=== PATIENT | female | born 1980 | race Two or more races ===

== ENCOUNTER 2016-11-01 07:52 | Emergency (ER) | payer OTHER ==
[~2016-11-01] VITALS: Ht 165.1 cm; Wt 88.5 kg
[2016-11-01] MEDS ORDERED: METFORMIN HCL500 M1 ORAL (08:11)
[2016-11-01 09:08] VITALS: BP 121/76
--- NOTE | 2016-11-01 09:12 | Emergency Room Report ---
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 Patient allegedly slipped and fell, hit back of head. No LOC, nausea/vomiting, blurry/change of vision. Not on ASA or other AC. Took 2 tylenol at work. C/o mild frontal headache now although no direct trauma to head. Also c/o pain to right elbow and base of right pinky finger. Takes Metformin for DM but no other PMHx or meds. Allergies: Coded Allergies: No Known Allergies (Unverified , 11/01/16) Patient History Past Medical History: DM Past Surgical History: none Pertinent Family History: none Social History: Denies: alcohol use, drug use, smoking Now: No Immunizations: UTD Reviewed Nursing Documentation: PMH: Agreed, PSxH: Agreed Nursing Documentation-PMH Hx Cardiac Problems: No Hx Hypertension: No Hx Pacemaker: No Hx Asthma: No Hx COPD: No Hx Diabetes: Yes Hx Cancer: No Hx Gastrointestinal Problems: No Hx Dialysis: No History Of Psychiatric Problem: No Hx Neurological Problems: No Hx Cerebrovascular Accident: No Hx Seizures: No Review of Systems All Other Systems: negative except mentioned in HPI Physical Exam Vital Signs Date Time Temp Pulse Resp B/P Pulse Ox O2 Delivery O2 Flow Rate FiO2 11/01/16 08:06 98.1 78 16 120/80 98 Room Air Sp02 EP Interpretation: reviewed, normal General Appearance: normal inspection, well appearing, no apparent distress, alert Head: normocephalic, atraumatic, other - No hematoma or lac to occipital scalp Eyes: bilateral eye EOMI, bilateral eye PERRL ENT: normal ENT inspection, hearing grossly normal, normal voice Neck: normal inspection, full range of motion, supple, no bony tend Respiratory: normal inspection, lungs clear, normal breath sounds, no respiratory distress, no retraction, no wheezing Cardiovascular #1: regular rate, rhythm, no edema Gastrointestinal: normal inspection, normal bowel sounds, non tender, soft, no guarding, no hernia Genitourinary: no CVA tenderness Musculoskeletal: normal inspection, back normal, normal range of motion, Saira' s Sign negative, other - Right hand: No obvious signs of trauma. Minor ttp to base/dorsum of right pinky finger. ROM intact. Right elbow: No obvious trauma or deformity. Full ROM. no ttp Neurologic: normal inspection, alert, oriented x3, responsive, manager registration III-XII nml as tested, motor strength/tone normal, speech normal Psychiatric: normal inspection, judgement/insight normal, mood/affect normal Skin: normal inspection, normal color, no rash Lymphatic: normal inspection Medical Decision Making Diagnostic Impression: Primary Impression: Fall Qualified Codes: W19.XXXA - Unspecified fall, initial encounter Additional Impression: Multiple injuries due to trauma ER Course 36YO F with accidental slip and fall at work. No obvious trauma. No focal neuro deficits. VSS. Afebrile CT head negative for acute traumatic injury Xray right hand no acute trauma either Patient feels better Work Comp paperwork completed DC home Other X-Ray Diagnostic Results Other X-Ray Diagnostic Results : X-Ray Ordered: Right hand EP Interpretation: Yes Findings: no fractures, no dislocation, no soft tissue swelling Number of Views: 3 Last Vital Signs Date Time Temp Pulse Resp B/P Pulse Ox O2 Delivery O2 Flow Rate FiO2 11/01/16 08:06 98.1 78 16 120/80 98 Room Air Status: improved Disposition: HOME, SELF-CARE Referrals: NOT CHOSEN IPA/,REFERRING (PCP) APOLONIA MACKEY M.D. Nov 01, 2016 09:12
--- NOTE | 2016-11-01 09:28 | Diagnostic Imaging Report ---
Indication: Headache Technique: Contiguous 5 mm thick transaxial imaging of the head obtained in a Siemens Sensation [address] scanner. Soft tissue and bone windows generated. Total Dose length Product (DLP): [address] Dose Index Volume (CTDIvol): 70.38 mGy Comparison: none Findings: There is an abnormal area of low attenuation in the left aspect of the cerebellum extending into the brachium pontis. 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 Artifact is possible. The finding is unlikely to be on the basis of an acute insult. There is no acute intracranial bleed. There is no mass effect or edema. The basal cisterns and ventricles appear normal. Supratentorial brain is normal. Impression: No evidence of acute intracranial hemorrhage, mass effect or edema. Low attenuation noted in the left aspect of the cerebellum. This could be artifact. Consider MRI for further evaluation and clarification. The CT scanner at [facility] is accredited by the [employer] and the scans are performed using protocols designed to limit radiation exposure to as low as reasonably achievable to attain images of sufficient resolution adequate for diagnostic evaluation.
[2016-11-01 09:37] VITALS: BP 121/76
--- NOTE | 2016-11-01 10:37 | Diagnostic Imaging Report ---
Indication: pain Findings: 3 views of the right hand were obtained. Normal bony mineralization and alignment are demonstrated. No acute fractures, erosions, or periosteal reaction are seen. Soft tissues are unremarkable. Impression: Negative examination of the right hand.
== END 2016-11-01 09:40 | disposition home or self-care (01) ==
LOC: EMR 08:28
DX: S09.8XXA Other specified injuries of head, initial encounter (principal); W01.198A Fall on same level from slipping, tripping and stumbling with subsequent striking against other object, initial encounter; Y92.511 Restaurant or cafe as the place of occurrence of the external cause; Y99.0 Civilian activity done for income or pay; M25.521 Pain in right elbow; M79.644 Pain in right finger(s); R51 Headache; E11.9 Type 2 diabetes mellitus without complications
CPT/HCPCS: 70450; 99284